=== PATIENT | female | born 1965 | race Caucasian/White ===

== ENCOUNTER → 2022-01-24 | Outpatient (CLI) | payer OTHER, SELFPAY ==
--- NOTE | 2022-01-24 07:59 | ECHOCS_ITS ---
Reason For Study: Arrhythmia Procedure This was a 2D Doppler, Color Flow transthoracic echocardiogram. Contrast injection was performed. Exam performed in department. Left Ventricle Normal LV size. Left ventricular systolic function is normal. The estimated ejection fraction is 65 %. No regional wall motion abnormalities noted. Right Ventricle Normal RV size. Normal systolic function. Atria Normal left atrium. Normal right atrium. Mitral Valve Normal mitral valve. Mild (1+) eccentric mitral valve insufficiency. Tricuspid Valve Normal tricuspid valve. Aortic Valve Trisinus/trileaflet aortic valve. Pulmonic Valve Normal pulmonic valve. Great Vessels Normal aortic root. The pulmonary artery is normal size. Normal inferior vena cava. Pericardium/Pleural No pericardial effusion. Medication Diluted definity 3ml given slow IV push to enhance endocardial definition. MMode/2D Measurements & Calculations LVIDd: 4.5 cm IVSd: 0.77 cm Ao root diam: 2.8 cm LVIDs: 2.6 cm LVPWd: 0.76 cm RVDd: 2.7 cm FS: 43.0 % LAV(MOD-bp): 25.4 ml LVAd ap4: 25.5 cm2 SV(MOD-sp4): 43.3 ml LAV(MOD-bp) Indexed: 15.8 ml/m2 LVLd ap4: 7.0 cm LAV(MOD-sp2): 35.2 ml EDV(MOD-sp4): 76.9 ml LAV(MOD-sp4): 18.1 ml EDV(sp4-el): 78.1 ml LVAs ap4: 15.8 cm2 LVLs ap4: 6.1 cm ESV(MOD-sp4): 33.6 ml ESV(sp4-el): 34.5 ml EF(MOD-sp4): 56.3 % EF(sp4-el): 55.9 % SV(sp4-el): 43.6 ml LA A4 area: 10.2 cm2 LA dimension(2D): 2.8 cm RA A4 area: 8.7 cm2 Doppler Measurements & Calculations MV E max pedro: 63.6 cm/sec Lat Peak E' Pedro: 11.2 cm/sec Med Peak E' Pedro: 8.0 cm/sec MV A max pedro: 46.9 cm/sec E/E' lat: 5.7 E/E' med: 8.0 MV E/A: 1.4 Ao V2 max: 112.6 cm/sec LV V1 max: 92.5 cm/sec PA V2 max: 87.6 cm/sec Ao max P.1 mmHg LV V1 max P.4 mmHg Ao V2 mean: 82.3 cm/sec Ao mean P.9 mmHg Ao V2 VTI: 25.1 cm PI end-d pedro: 85.7 cm/sec TR max pedro: 217.8 cm/sec TR max P.0 mmHg ECHO/Echo Complete W/ Contrast Interpretation Summary Normal LV size. Left ventricular systolic function is normal. The estimated ejection fraction is 65 %. Contrast injection was performed. Ordering Physician: Gary Pruitt Referring Physician: Salas Griffin Performed By: Barb Sanchez, ALE, RVT
== END | disposition home or self-care (01) ==
PROVIDERS: PCP Family Medicine; Referring Provider Internal Medicine Cardiovascular Disease; Visit Provider Internal Medicine Cardiovascular Disease
DX: I47.2 Ventricular tachycardia (principal)
CPT/HCPCS: 93306; Q9957; A4216; C8929

== ENCOUNTER → 2022-03-13 | Outpatient (CLI) | payer OTHER, SELFPAY ==
--- NOTE | 2022-03-13 10:10 | RAD_ITS ---
STUDY: X-RAY - LUMBAR SPINE REASON FOR EXAM: Female, 56 years old. PAIN TECHNIQUE: XR Spine Lumbar Min 4 Views COMPARISON: None FINDINGS: Normal lumbar lordosis. There is no substantial scoliosis. There is a normal alignment of the vertebrae. Normal vertebral bodies and endplates. Normal disc space heights. The soft tissue structures are unremarkable. RAD/L/S Spine Min 4 Views IMPRESSION: There are no acute findings. Electronically Signed: Felix Paulino MD at 15:28 EDT ,
== END | disposition home or self-care (01) ==
LOC: MTLAB 10:08
PROVIDERS: PCP Family Medicine; Referring Provider Family Medicine; Visit Provider Family Medicine
DX: M54.30 Sciatica, unspecified side (principal)
CPT/HCPCS: 72110

== ENCOUNTER → 2022-03-20 | Outpatient (CLI) | payer OTHER, SELFPAY ==
--- NOTE | 2022-03-20 11:49 | MRI_ITS ---
STUDY: MRI LUMBAR SPINE WITHOUT CONTRAST REASON FOR EXAM: Female, 56 years old. Right leg pain. TECHNIQUE: Standardized fat and water weighted pulse sequences were obtained in the sagittal and axial planes. COMPARISON: None FINDINGS: T10-T11, T11-T12 and T12-L1: (Sagittal only). Normal endplates. Normal disc height, hydration and morphology. No ventral extradural defects.. Normal central canal and bilateral intervertebral neural foramina. Normal lumbar lordosis. There is no substantial scoliosis. Normal conus medullaris that terminates at the T12-L1 disc space level. L1-2: Normal endplates. Normal disc height, hydration and morphology. Normal bilateral facet joints. Normal central canal and bilateral lateral recesses. Normal bilateral intervertebral neural foramina. L2-3: Normal endplates. Normal disc height, hydration and morphology. Normal bilateral facet joints. Normal central canal and bilateral lateral recesses. Normal bilateral intervertebral neural foramina. L3-4: Normal endplates. Normal disc height, hydration and morphology. Normal bilateral facet joints. Normal central canal and bilateral lateral recesses. Normal bilateral intervertebral neural foramina. L4-5: MODIC type I degenerative vertebral marrow edema underneath the right side of the L5 superior endplate. Normal L4 inferior endplate. Mild disc space height narrowing. Small right posterior disc extrusion causing displacement of the right L5 nerve root sleeve. This is also causing severe stenosis of the right lateral recess and asymmetric central canal stenosis with an AP canal diameter of 4 mm. Normal left lateral recess. Mild left degenerative facet arthropathy. Normal right facet joint. Normal bilateral intervertebral neural foramina.. L5-S1: Normal endplates. Normal disc height, hydration and morphology. No ventral extradural defect. Pronounced left degenerative facet arthropathy. Mild right degenerative facet arthropathy. Mild central canal stenosis with a transverse canal diameter of 7 mm but the AP canal diameter is 10 mm. Normal bilateral lateral recesses. Normal bilateral intervertebral neural foramina. Normal visualized sacral ala. Normal visualized paraspinous soft tissue structures. MRI/Spine Lumbar (Routine) IMPRESSION: 1. Small right L4-L5 posterior disc extrusion causing severe stenosis of the lateral recesses and displacement of the right L5 nerve sleeve. This is also causing pronounced asymmetric central canal stenosis with an AP canal diameter of 4 mm. 2. Pronounced left L5-S1 degenerative facet arthropathy. Electronically Signed: Warren Nair MD at 12:41 EDT ,
== END | disposition home or self-care (01) ==
LOC: MRI 11:49
PROVIDERS: PCP Family Medicine; Referring Provider Family Medicine; Visit Provider Family Medicine
DX: M48.061 Spinal stenosis, lumbar region without neurogenic claudication (principal); M46.96 Unspecified inflammatory spondylopathy, lumbar region
CPT/HCPCS: 72148

== ENCOUNTER → 2022-07-04 | Outpatient (CLI) | payer OTHER, SELFPAY ==
--- NOTE | 2022-07-04 08:55 | RAD_ITS ---
INDICATION: HIP PAIN EXAMINATION/TECHNIQUE: X-RAY - RIGHT XR Hip Unilateral with Pelvis when performed; 2-3 Views 3 VIEWS COMPARISON: None. FINDINGS: SOFT TISSUES: No soft tissue swelling or gas. No radiopaque foreign body. BONES/JOINTS: No acute fracture or subluxation.. There is normal alignment. Minimal osteophyte formation arising from the acetabular roof bilaterally. Joint space is maintained. Pelvic ring is intact.. No sclerotic or destructive changes observed. RAD/HIP, UNI W/ Pelvis 2-3 Views IMPRESSION: 1. Mild osteophyte formation particularly involving the acetabular roof bilaterally. 2. No evidence of fracture or joint space narrowing or focal acute bony abnormality Electronically Signed: Skyler Tom MD at 17:46 EDT ,
== END | disposition home or self-care (01) ==
LOC: MTRAD 08:54
PROVIDERS: PCP Family Medicine; Referring Provider Family Medicine; Visit Provider Family Medicine
DX: M25.551 Pain in right hip (principal)
CPT/HCPCS: 73502

== ENCOUNTER → 2023-12-03 | Outpatient (CLI) | payer BC, SELFPAY ==
--- NOTE | 2023-12-03 17:17 | RAD_ITS ---
INDICATION: pain EXAMINATION/TECHNIQUE: X-RAY - RIGHT XR Hand Min 3 Views 3 VIEWS COMPARISON: No relevant prior comparison study available FINDINGS: SOFT TISSUES: No soft tissue swelling or gas. No radiopaque foreign body. BONES/JOINTS: No acute fracture or subluxation.. Normal alignment. Joint spaces are maintained. There is a mild degenerative change at the trapeziometacarpal articulation. No destructive bony process.. No sclerotic or destructive changes observed. RAD/Hand Min 3 Views IMPRESSION: 1. No evidence fracture, malalignment or focal bony or joint space abnormality. 2. Mild degenerative change at the trapeziometacarpal articulation Electronically Signed: Skyler Tom MD at 17:20 EDT ,
--- NOTE | 2023-12-03 17:18 | RAD_ITS ---
EXAM: XR LEFT HAND COMPLETE, 3 OR MORE VIEWS CLINICAL INDICATION: pain TECHNIQUE: Frontal, lateral and oblique views of the left hand. COMPARISON: No relevant prior studies available. FINDINGS: BONES/JOINTS: Unremarkable. No acute fracture. No subluxation. Normal alignment. Preservation of the joint space. No sclerotic or destructive changes observed. SOFT TISSUES: Unremarkable. No soft tissue swelling or gas. No radiopaque foreign body. RAD/Hand Min 3 Views IMPRESSION: Negative left hand x-rays. Electronically Signed: Luis Carlos Dubois MD at 0:04 EDT ,
--- OUTSIDE RECORDS SUMMARY | 2023-12-03 22:43 | XMS RPT_ITS | CCD ---
Author Name Unknown Address [address] [place] [address] Organization [facility] Care Team Providers Care Surgical Instruments Inspector Name Role Phone JIMY LYNCH, DR CANTU Primary Care Physician Wilbur LYNCH, Julian Foster Unavailable [phone] Alondra Ahn MD Primary Care Provider JIMY LYNCH, DR CANTU Attending Fay AHN MD, DR CANTU Primary Care Fay MCCARTHY APRN-SET UP INSPECTOR, DELMY Attending Goldy AHN MD, DR CANTU Primary Care Fay ALBERT MD, DR VALENTÍN Lopez Attending Samira AHN MD, DR CANTU Primary Care Fay ALBERT MD, DR VALENTÍN Lopez Attending Samira AHN MD, DR CANTU Primary Care Fay ASIF MD, DR IRINEO Alas Attending Yuliya ANH MD, DR CANTU Primary Care Fay ASIF MD, DR IRINEO Alas Referring Yuliya erazo Allergies Allergy Classification Reported Allergen(s) Allergy Type Date of Onset Reaction(s) Facility (4 sources) Codeine; Translations: [codeine] Drug Allergy 10-21-2019 Nausea and vomiting (disorder), Unknown [facility] Work Phone: (3 sources) Meperidine; Translations: [meperidine] Drug Allergy Nausea and vomiting (disorder) [facility] Work Phone: Medications Current Medications Medication Drug Class(es) Dates Sig (Normalized) Sig (Original) estradiol 1 mg oral tablet (3 sources) Estrogen Start: 05-16-2022 estradiol 1 mg oral tablet Dose : 1 mg = 1 tab(s), Oral, qDay, # 90 tab(s), 2 Refill(s), Pharmacy: [facility], 162.6, cm, 05/16/22 14:30:00 EDT, Height, kg, 05/16/22 14:30:00 EDT, Dosing Weight Start Date: 05/16/22 Status: Ordered Completed/Discontinued Medications Medication Drug Class(es) Dates Sig (Normalized) Sig (Original) progesterone 200 mg oral capsule (1 source) Progesterone take 1 capsule by mouth once daily at bedtime progesterone micronized (PROMETRIUM) 200 mg capsule Take 200 mg by mouth daily at bedtime. 0 Active Problems Active Problems Problem Classification Problem Date Documented Date Episodic/Chronic Cardiac dysrhythmias (8 sources) Cardiac arrhythmia; Translations: [Supraventricular tachycardia] Onset: 09-18-2019 09-11-2017 Chronic Cardiac dysrhythmias (4 sources) Palpitations; Translations: [Palpitations] 10-14-2018 Episodic Disorders of lipid metabolism (1 source) Mixed hyperlipidemia; Translations: [Mixed hyperlipidemia] 10-25-2019 Chronic Heart valve disorders (7 sources) Mitral valve prolapse; Translations: [Mitral valve regurgitation] 10-14-2018 Chronic Other circulatory disease (1 source) History of cardiovascular surgery; Translations: [Presence of other cardiac implants and grafts] 10-25-2019 Chronic Other non-traumatic joint disorders (1 source) Pain in right hip joint; Translations: [Pain in right hip] Episodic Other nutritional; endocrine; and metabolic disorders (3 sources) H/O: raised blood lipids 10-14-2018 Episodic Residual codes; unclassified (3 sources) [place] 05-07-2021 Episodic Residual codes; unclassified (1 source) History of cardiac catheterization; Translations: [Other specified postprocedural states] 04-25-2020 Episodic Syncope (1 source) Near syncope; Translations: [Syncope and collapse] 10-25-2019 Episodic Unclassified (6 sources) Patient encounter status 05-07-2021 Unclassified (1 source) Normal coronary arteries; Translations: [Normal coronary arteries] 10-25-2019 Past or Other Problems Problem Classification Problem Date Documented Date Episodic/Chronic Residual codes; unclassified (1 source) Past history of procedure; Translations: [Personal history of other medical treatment] Onset: 11-12-2018 04-25-2020 Episodic Spondylosis; intervertebral disc disorders; other back problems (2 sources) Intervertebral disc disorders with radiculopathy, lumbar region; Translations: [Intervertebral disc disorders with radiculopathy, lumbar region] Onset: 03-27-2022 Episodic Results Test Name Value Interpretation Reference Range Facil ity Encounters Encounter Date Encounter Type Care Provider Facility Start: 07-24-2022 End: 10-29-[address] IRINEO ASIF MD Facility:B Start: 07-24-2022 End: 10-29-[address] IRINEO ASIF MD [facility] Start: 05-16-2022 End: 05-17-2022 ambulatory DELMY MCCARTHY HEALTH PROFESSIONAL-SET UP INSPECTOR Facility:A Start: 05-16-2022 End: 05-16-2022 Patient encounter procedure [facility] Start: 05-09-2022 End: 05-09-2022 Subsequent hospital visit by physician [facility] (I-Stat/1.5t) [facility] Procedures Date Procedure Procedure Detail Performing Clinician Start: 05-09-2022 Cardiac mri w/wo con trast & further seq Gary S Sonal Work Phone: Start: 02-11-[address] ALONDRA AHN MD Start: 10-15-[address] ALONDRA AHN MD Start: 09-21-[address] KANE AHN MD Hysterectomy DR ALONDRA AHN MD Implantation of inse rtable loop recorder DR ALONDRA AHN MD Plan of Treatment Date Care Activity Detail Author Start: 05-22-2022 Influenza vaccination INFLUENZA (#1) [facility] Start: 01-09-2022 COVID-19 VACCINE (4 - Booster for Pfizer series) COVID-19 VACCINE (4 - Booster for Pfizer series) [facility] Start: 2013 SHINGRIX VACCINE (1 of 2) SHINGRIX V ACCINE (1 of 2) [facility] Start: 2008 COLOGUARD (FIT-DNA) COLOGUARD (FIT-D NA) [facility] Start: 2008 Colonoscopy COLONOSCOPY [facility] Start: 2008 COLORECTAL CANCER SCREENING COLORECTAL CANCER SCREENING [facility] Start: [address] COLONOGRAPHY [facility] Start: 2008 DIABETES SCREEN DIABETES SCREEN [facility] Start: 2008 FECAL OCCULT BLOOD FECAL OCCULT BLOO D [facility] Start: 2008 LIPID SCREEN LIPID SCREEN [facility] Start: 2008 SIGMOIDOSCOPY SIGMOIDOSCOPY [facility] Start: 2003 Mammography MAMMOGRAM [facility] Start: 1993 HPV TESTING HPV TESTING [facility] Start: 1984 PAP TESTING PAP TESTING [facility] Start: 1982 Urine microalbumin profile DTAP,TDAP ,TD (1 - Tdap) [facility] Start: 1981 HEPATITIS C SCREENING HEPATITIS C SC REENING [facility] Start: 1981 HIV SCREENING HIV SCREENING [facility] Start: 1975 Adult depression scr [facility] assessment DEPRESSION SCREENING [facility] Start: 1963 HEPATITIS B (1 of 3 - 3-dose series) HEPATITIS B (1 of 3 - 3-dose series) [facility] Payers Date Payer Category Payer Private Health Insurance [id number] 2021 Private Health Insurance [employer] A ETNA PPO [id number] 2021-Present [phone] [address] [place] [address] PPO [id number] 1965 Unknown [id number] 1963 Unknown [id number] 1963 Unknown [id number] 1963 Unknown [id number] 1965 Unknown [id number] Social History Date Type Detail Facility Start: 10-15-2018 End: 10-21-2019 Tobacco smoking status Never smoked tobacco (finding) [facility] Sex Assigned At Female [facility] Start: 10-21-2019 Tobacco use and exposure Smokeless tobacco non-user [facility] Start: 05-01-2020 Alcohol intake Current drinke r of alcohol (finding) [facility] Start: 05-01-2020 History SDOH Alcohol Frequency 3 [facility] Start: 1965 Sex Assigned At Not on file [facility] Start: 04-29-2022 End: 05-09-2022 Exposure to SARS-CoV-2 (event) Not sure [facility] Functional Status Date Assessment Result Facility 07-24-2022 Functional Status Home Living Ad ditional Information OBJECTIVE Posture: forward shoulder posture Gait: amb with no AD and no antalgic gait. no drop foot observed Transfers: WNL Sensation: baseline of R calf numbness Reflexes: NT Palpation: no pain with gluteal palpation, ischila turberostiies, or lateral hip Edema: none AROM: WNL PROM: WNL - pain with AAROM/PROM hip flexiona dn extension MMT: 4+/5 grossly Special Tests Scour: pos DAGO: neg FADDIR: pos C-sign: pos Leg Length: neg Pelvis: symm [facility] Progress note 05-09-2022 Note Date & Type Note Facility 05-09-2022 Note HNO ID: [id number] Author: RT Viola(R) Service: Radiology Author Type: Technologist Type: Progress Notes Filed: 05/09/2022 10:54 AM Note Text: Radiology Service Progress Note DATE OF SERVICE: May 09, 2022 TIME: 10:53 AM PATIENT IDENTITY VERIFICATION COMPLETED USING TWO (2) STANDARD IDENTIFIERS: Name and Date of confirmed by patient verbally and Name and Date of confirmed by identification band. FALL SCREENING: Has the patient had 2 falls in the last year or 1 fall with injury or currently using an Ambulatory Assistive Device (Walker, Cane, Wheelchair, Crutches, etc.)? No PATIENT GENDER DATA: Female. status: : No status: NO. PATIENT RELEVANT IMPLANT DATA REVIEWED: Yes ALLERGIES: Reviewed and unchanged CONTRAST ALLERGY: NO. EXAM: MRI - CONTRAST TYPE: GROUP II PERIPHERAL IV DATA: Ambulatory: A peripheral IV was started in the Right antecubital site with a Angio cath: 22 gauge. RADIOLOGY DEPARTMENT: MR; Exam(s) Completed: Cardiac: Cardiac SIGNATURE: RT Viola(R) PATIENT NAME: Amelie Franks DATE: May 09, 2022 TIME: 10:53 AM [facility] History of Present illness Narrative 05-09-2022 RT Viola(R) - 05/09/2022 9:00 AM EDT Note Date & Type Note Facility 05-09-2022 History of Presen t illness Narrative Radiology Service Progress Note DATE OF SERVICE: May 09, 2022 TIME: 10:53 AM PATIENT IDENTITY VERIFICATION COMPLETED USING TWO (2) STANDARD IDENTIFIERS: Name and Date of confirmed by patient verbally and Name and Date of confirmed by identification band. FALL SCREENING: Has the patient had 2 falls in the last year or 1 fall with injury or currently using an Ambulatory Assistive Device (Walker, Cane, Wheelchair, Crutches, etc.)? No PATIENT GENDER DATA: Female. status: : No status: NO. PATIENT RELEVANT IMPLANT DATA REVIEWED: Yes ALLERGIES: Reviewed and unchanged CONTRAST ALLERGY: NO. EXAM: MRI - CONTRAST TYPE: GROUP II PERIPHERAL IV DATA: Ambulatory: A peripheral IV was started in the Right antecubital site with a Angio cath: 22 gauge. RADIOLOGY DEPARTMENT: MR; Exam(s) Completed: Cardiac: Cardiac SIGNATURE: RT Viola(R) PATIENT NAME: Amelie Franks DATE: May 09, 2022 TIME: 10:53 AM documented in this encounter [facility] Evaluation + Plan note Note Date & Type Note Facility Evaluation + Plan note Future Appointments Appointment Date:05/08/2022 10:00:00 AM Scheduled Provider:MIGUEL ANGEL DELONG MD Location:OCCUPATIONAL HYGIENIST ONC Appointment Type:SO OV Annual Visit [facility] Evaluation + Plan note Laboratory Note Date & Type Note Facility Evaluation + Plan note Future Appointments Appointment Date:05/22/2023 02:20:00 PM Scheduled Provider:DELMY MCCARTHY Location:OCCUPATIONAL HYGIENIST ONC Appointment Type:SO OV Annual Visit Future Scheduled TestsPathology Crew Boss Request 05/16/22 [facility] Hospital course Narrative Note Date & Type Note Facility Hospital course Narrative No data available for this section [facility] Hospital Discharge instructions Note Date & Type Note Facility Hospital Discharge instructions No data available for this section [facility] Progress note Note Date & Type Note Facility Progress note No data available for this section [facility] Summary Purpose Family History No Family History Records FoundNo Family History Records Found Advance Directives No Advanced Directives Records FoundNo Advanced Directives Records Found Additional Source Comments Care Team (unrecognized sect ion and content) Source Comments (unrecognize d section and content) In the event this informatio n is protected by the Federal Confidentiality of Alcohol and Drug Abuse Patient Records regulations: The Federal rules restrict any use of the information to criminally investigate or prosecute any alcohol or drug abuse patient.[facility] INFORMATION SOURCE (unrecogn ized section and content) DATE CREATED AUTHOR AUTHOR'S ORGANIZ ATION 12/17/2022 [facility] Care Team (unrecognized sect ion and content) Care Team Personnel Name: ALONDRA AHN MD Member Role: Primary Care Physician Address: Address: [address] [place] [address] [address] [place] [address]- [place] Name: MIGUEL ANGEL DELONG MD Position: P4 Oncology Provider Address: Address: [address] [place] [address] [place] [address] [place] Name: DELMY MCCARTHY Position: P4 Oncology Provider Address: Address: [address] [place] [address] Gynecologic Oncology [place] [id number] Care Team Related Persons Name: DEIRDRE FRANKS Address: Home [address] [place] [id number] [place] Name: LUKE FRANKS Name: JAMES FRANKS Care Team Personnel Name: ALONDRA AHN MD Member Role: Primary Care Physician Address: Address: [address] [place] [address] [address] [place] [address]- [place] Name: MIGUEL ANGEL DELONG MD Position: P4 Oncology Provider Member Role: Gynecologic Oncologist Address: Address: [address] [place] [address] Gynecologic Oncology [place] [id number] Name: DELMY MCCARTHY Position: P4 Oncology Provider Member Role: Gynecologic Oncologist Address: Address: [address] [place] [address] Gynecologic Oncology [place] [id number] Care Team Related Persons Name: DEIRDRE FRANKS Address: [address] [id number] [place] Name: LUKE FRANKS Name: JAMES FRANKS FOR RECORDS PERTAINING TO PATIENTS WHO ARE OR HAVE BEEN ENROLLED IN A CHEMICAL DEPENDENCY/SUBSTANCEABUSE PROGRAM, SOME INFORMATION MAY BE OMITTED. This clinical summary was aggregated from multiple sources. Caution should be exercised in using it in the provision of clinical care. This summary normalizes information from multiple sources, and as a consequence, information in this document may materially change the coding, format and clinical context of patient data. In addition, data may be omitted in some cases. CLINICAL DECISIONS SHOULD BE BASED ON THE PRIMARY CLINICAL RECORDS. [facility], [facility]. provides no warranty or guarantee of the accuracy or completeness of information in this document.
== END | disposition home or self-care (01) ==
LOC: MTRAD 17:17
PROVIDERS: PCP Family Medicine; Referring Provider Family Medicine; Visit Provider Family Medicine
DX: M79.641 Pain in right hand (principal); M79.642 Pain in left hand
CPT/HCPCS: 73130